=== PATIENT | female | born 1960 | race Caucasian/White ===

== ENCOUNTER 2019-02-20 21:59 | Emergency (ER) | payer SELFPAY ==
[~2019-02-20] VITALS: Ht 172.7 cm; Wt 42.9 kg
[2019-02-20 22:12] VITALS: Ht 172.7 cm; Wt 42.9 kg
[2019-02-21 02:35] VITALS: BP 143/91; PULSE 88; RESP 19
--- NOTE | 2019-02-21 03:31 | EN ---
Date/Time of Note Date/Time of Note DATE: 02/21/19 TIME: 03:30 ER Progress Note 58-year-old female presenting with complaints of bugs crawling all over her body and coming out of her rectum. She states that she has been seen for this prior and no one will believe her. She denies any legal history. Psychiatric work-up was initiated. Prior to examination, patient eloped from the ER. Patient did not seem to be a danger to herself or others. She did however seem to have psychosis. Labs were collected prior to elopement. She was noted to be mildly anemic. No further assessment or evaluation was done as patient eloped. DAIANA CLARK MD Feb 21, 2019 03:31
== END 2019-02-21 03:17 | disposition left against medical advice (07) ==
LOC: E/R 21:59
DX: F99 Mental disorder, not otherwise specified (principal); R40.2142 Coma scale, eyes open, spontaneous, at arrival to emergency department; R40.2252 Coma scale, best verbal response, oriented, at arrival to emergency department; R40.2362 Coma scale, best motor response, obeys commands, at arrival to emergency department
CPT/HCPCS: 36415; 80053; 80307; 85025; 99283